=== PATIENT | female | born 1980 | race Caucasian/White ===

== ENCOUNTER → 2017-03-13 | Outpatient (CLI) | payer OTHER | LOC: CIMAGING 15:14 | PROVIDERS: ATTEND Nurse Practitioner | DX: R60.1 Generalized edema (principal) | CPT/HCPCS: 93971-PO ==

== ENCOUNTER 2017-10-12 11:29 | Emergency (ER) | payer OTHER ==
--- NOTE | 2017-10-12 12:00 | EDPHY ---
H & P Stated Complaint: rt lower leg swelling,chest pressure,sob,stiff hands since last Mon. Time Seen by Provider: 10/12/17 11:35 HPI/ROS: Chief Complaint: Leg pain, shortness of breath HPI: 37-year-old woman with a history of a DVT in her left leg a year ago is presenting with pain in her right calf similar to her prior DVT pain. Patient is also having some chest heaviness and shortness of breath when she goes upstairs which is atypical for her. No pleuritic chest. Patient has chronic bilateral lymphedema which is unchanged from prior. Patient states that after her last DVT she was initially prescribe Xarelto but this was too expensive. She has been taking aspirin since that time. No cough. No fevers or chills. No recent. Is of immobility. She is not on oral contraceptives. ROS: 10 point Review of Systems is negative except as noted in the HPI. PMH: DVT, chronic lymphedema Social History: No smoking, no alcohol, no recreational drug use Family History: non-contributory Physical Exam: Gen: Awake, Alert, No Distress HEENT: Nose: no rhinorrhea Eyes: PERRLA, EOMI Mouth: Moist mucosa Neck: Supple, no JVD Chest: nontender, lungs clear to auscultation Heart: S1, S2 normal, no murmur Abd: Soft, non-tender, no guarding Back: no CVA tenderness, no midline tenderness Ext: Moderate bilateral nonpitting edema. Patient has pain in her medial right calf and medial right thigh. No erythema Skin: no rash Neuro: CN II-XII intact, Sensation grossly intact, Strength 5/5 in bilateral upper and lower extremities - Personal History LMP (Females 10-55): 22-28 Days Ago - Medical/Surgical History Other PMH: Med hx-hx of DVT-left-03/2017,PCOS,HepB - Social History Smoking Status: Former smoker Constitutional: Initial Vital Signs Temperature (C) 36.9 C 10/12/17 11:37 Heart Rate 70 10/12/17 11:37 Respiratory Rate 18 10/12/17 11:37 Blood Pressure 130/83 H 10/12/17 11:37 O2 Sat (%) 96 10/12/17 11:37 O2 Delivery Mode Room Air Allergies/Adverse Reactions: No Known Allergies Allergy (Verified 10/12/17 11:35) Home Medications: Medication Instructions Recorded Aspirin 325 mg (*) 650 10/12/17 Multivitamin (*) 10/12/17 Turmeric 10/12/17 Medical Decision Making - Diagnostics Imaging Results: Imaging Impressions Extremity Venous Study 10/12/17 11:43 Impression: 1. No deep venous thrombosis. 2. Small Sanches's cyst. Findings discussed with Emergency Department physician, Dr. Skyler Mcgregor on October 12, 2017 at 1241 hours. Imaging: Discussed imaging studies w/ call center team leader Radiologist ED Course/Re-evaluation: D-dimer is negative. Ultrasound is negative for DVT. Is positive for sanches cyst. Remainder chemistry is unremarkable. Pain is consistent likely with musculoskeletal pain. Will discharge with follow-up with primary care physician. - Data Points Laboratory Results: Laboratory Results 10/12/17 12:25 10/12/17 12:25 10/12/17 10/12/17 10/12/17 12:25 12:25 12:25 WBC 7.10 10^3/uL 10^3/uL (3.80-9.50) RBC 4.72 10^6/uL 10^6/uL (4.18-5.33) Hgb 14.6 g/dL g/dL (12.6-16.3) Hct 41.6 % % (38.0-47.0) MCV 88.1 fL fL (81.5-99.8) MCH 30.9 pg pg (27.9-34.1) MCHC 35.1 g/dL g/dL (32.4-36.7) RDW 12.2 % % (11.5-15.2) Plt Count 197 10^3/uL 10^3/uL (150-400) MPV 10.5 fL fL (8.7-11.7) Neut % (Auto) 62.4 % % (39.3-74.2) Lymph % (Auto) 27.2 % % (15.0-45.0) [place] % (Auto) 6.6 % % (4.5-13.0) Eos % (Auto) 2.7 % % (0.6-7.6) Baso % (Auto) 0.4 % % (0.3-1.7) Nucleat RBC Rel Count 0.0 % % (0.0-0.2) Absolute Neuts (auto) 4.43 10^3/uL 10^3/uL (1.70-6.50) Absolute Lymphs (auto) 1.93 10^3/uL 10^3/uL (1.00-3.00) Absolute Monos (auto) 0.47 10^3/uL 10^3/uL (0.30-0.80) Absolute Eos (auto) 0.19 10^3/uL 10^3/uL (0.03-0.40) Absolute Basos (auto) 0.03 10^3/uL 10^3/uL (0.02-0.10) Absolute Nucleated RBC 0.00 10^3/uL 10^3/uL (0-0.01) Immature Gran % 0.7 % % (0.0-1.1) Immature Gran # 0.05 10^3/uL 10^3/uL (0.00-0.10) D-Dimer Sodium 141 mEq/L mEq/L (135-145) Potassium 4.0 mEq/L mEq/L (3.5-5.2) Chloride 105 mEq/L mEq/L (97-110) Carbon Dioxide 27 mEq/l mEq/l (22-31) Anion Gap 9 mEq/L mEq/L (8-16) BUN 11 mg/dL mg/dL (7-23) Creatinine 0.7 mg/dL mg/dL (0.6-1.0) Estimated GFR > 60 Glucose 80 mg/dL mg/dL (70-100) Calcium 9.3 mg/dL mg/dL (8.5-10.4) Beta HCG, Qual NEGATIVE 10/12/17 12:25 WBC RBC Hgb Hct MCV MCH MCHC RDW Plt Count MPV Neut % (Auto) Lymph % (Auto) [place] % (Auto) Eos % (Auto) Baso % (Auto) Nucleat RBC Rel Count Absolute Neuts (auto) Absolute Lymphs (auto) Absolute Monos (auto) Absolute Eos (auto) Absolute Basos (auto) Absolute Nucleated RBC Immature Gran % Immature Gran # D-Dimer < 0.27 ug/mLFEU ug/mLFEU (0.00-0.50) Sodium Potassium Chloride Carbon Dioxide Anion Gap BUN Creatinine Estimated GFR Glucose Calcium Beta HCG, Qual Departure - Departure Disposition: Home, Routine, Self-Care Clinical Impression: Leg pain Condition: Good Instructions: Leg Pain (ED) Additional Instructions: Alternate acetaminophen (1000 mg) with ibuprofen (400 mg) every 4 hours as needed for pain. Follow up with primary care physician in 3-4 days for further evaluation. Referrals: Celestina Ludwig, FREELANCE DIRECTOR [Primary Care Provider] - As per Instructions
[2017-10-12 12:34] LABS: PLATELET COUNT 197 10^3/uL (150-400)
[2017-10-12 13:21] VITALS: BP 106/64
== END 2017-10-12 13:08 | disposition home or self-care (01) ==
LOC: CED 11:29
DX: M79.661 Pain in right lower leg (principal); Z79.82 Long term (current) use of aspirin; Z87.891 Personal history of nicotine dependence
CPT/HCPCS: 80048-PO; 84703-PO; 85025-PO; 85378-PO; 93971-PO